=== PATIENT | male | born 2000 ===

== ENCOUNTER 2019-03-19 18:22 | Emergency (ER) | payer BC, OTHER ==
[~2019-03-19] VITALS: Ht 171 cm; Wt 71.2 kg
[2019-03-19 19:12] LABS: BILIRUBIN,URINE NEGATIVE (NEGATIVE); CLARITY,URINE CLOUDY; COLOR,URINE YELLOW; GLUCOSE, URINE (UA) NEGATIVE (NEGATIVE); KETONES,URINE TRACE (NEGATIVE); LEUKOCYTE ESTERASE ,URINE NEGATIVE (NEGATIVE); NITRITE,URINE NEGATIVE (NEGATIVE); PH,URINE 7.5 (5-9); PROTEIN,URINE TRACE (NEGATIVE); UROBILINOGEN,URINE 0.2 MG/DL (NORMAL)
[2019-03-19 19:24] LABS: RBC,URINE 50-100 /HPF
[2019-03-19 19:25] LABS: AMORPHOUS SEDIMENT,UR LARGE AMOR PHOSPHATE /LPF; BACTERIA,URINE NEGATIVE /HPF
[2019-03-19] MEDS ORDERED: KETOROLAC 30 MG/ML VIAL IVP ONE (19:45)
[2019-03-19 19:49] LABS: BASOPHILS % (AUTO) 0 % (0-10); EOSINOPHILS # (AUTO) 0.2 10^3/uL (0.0-0.3); EOSINOPHILS % (AUTO) 1 % (0-10); HEMATOCRIT 44 % (40-54); LYMPHOCYTES # (AUTO) 2.1 X 10^3 (1.0-4.0); LYMPHOCYTES % (AUTO) 17 % (12-44); MEAN CORPUSCULAR HEMOGLOBIN 30 PG (25-34); MEAN CORPUSCULAR HGB CONC 34 G/DL (32-36); MEAN CORPUSCULAR VOLUME 89 FL (80-99); MEAN PLATELET VOLUME 10.8 FL (7.4-10.4); MONOCYTES # (AUTO) 0.5 X 10^3 (0.0-1.0); MONOCYTES % (AUTO) 4 % (0-12); NEUTROPHILS # (AUTO) 9.6 X 10^3 (1.8-7.8); NEUTROPHILS % (AUTO) 77 % (42-75); PLATELET COUNT 203 10^3/uL (130-400); RED CELL DISTRIBUTION WIDTH 11.9 % (10.0-14.5); WHITE BLOOD COUNT 12.5 10^3/uL (4.3-11.0)
--- NOTE | 2019-03-19 20:00 | Diagnostic Imaging Report ---
PROCEDURE: CT abdomen and pelvis without contrast. TECHNIQUE: Multiple contiguous axial images were obtained through the abdomen and pelvis without the use of intravenous contrast. Auto Exposure Controls were utilized during the CT exam to meet ALARA standards for radiation dose reduction. INDICATION: Left flank pain Unenhanced images of the liver and spleen reveal no focal abnormality. No gallbladder, pancreatic or adrenal gland abnormality is identified. There are several punctate calcifications in the upper and lower pole of the right kidney. In addition, there is also mild right hydronephrosis and hydroureter to the level of an approximately 0.3 cm right ureterovesical junction calculus. Left kidney and ureter are unremarkable. There is no evidence of free fluid or focal inflammation. No organized fluid collection is identified. There is no evidence of appendiceal inflammation. No bladder stone is seen. IMPRESSION: There are several nonobstructing stones in the right kidney with an at least partially obstructing 0.3 cm right ureterovesical junction stone. Dictated by: Dictated on workstation # [id number]
[2019-03-19 20:14] LABS: CHLORIDE 104 MMOL/L (98-107); SODIUM 140 MMOL/L (135-145)
[2019-03-19 20:15] LABS: ALANINE AMINOTRANSFERASE 15 U/L (0-55); ALBUMIN 4.7 GM/DL (3.2-4.5); ALKALINE PHOSPHATASE 102 U/L (40-136); BILIRUBIN,TOTAL 0.3 MG/DL (0.1-1.0); BUN/CREATININE RATIO 13; CALCIUM 10.2 MG/DL (8.5-10.1); CARBON DIOXIDE 26 MMOL/L (21-32); GFR ESTIMATED > 60; GLUCOSE 107 MG/DL (70-105); TOTAL PROTEIN 7.6 GM/DL (6.4-8.2)
--- NOTE | 2019-03-19 20:53 | ED Abdominal Pain ---
General Chief Complaint: Abdominal/GI Problems Stated Complaint: ABD PAIN Nursing Triage Note: pt states abd pain started today around 1600 Source of Information: Patient, Family Exam Limitations: No Limitations History of Present Illness Date Seen by Provider: Mar 19, 2019 Time Seen by Provider: 18:45 Initial Comments Right flank and lower abdominal pain starting about 4:00 this afternoon. He was at work. No trauma or incident. Mild dysuria but no hematuria. No history of kidney stones abdominal surgeries or medical problems. He has not taken anything for the pain yet. He is not having any nausea or vomiting at this time. Allergies and Home Medications Allergies Coded Allergies: No Known Drug Allergies (Unverified , 03/19/19) Home Medications Cephalexin 500 Mg Tablet, 500 MG PO BID Prescribed by: SHANTE WHITEHEAD on 03/19/192102 Hydrocodone Bit/Acetaminophen 1 Tab Tab, 1 EACH PO Q4-6HR PRN for PAIN-MODERATE Prescribed by: SHANTE WHITEEHAD on 03/19/192102 Ondansetron 4 Mg Tab.rapdis, 4 MG PO Q6H PRN for NAUSEA/VOMITING Prescribed by: SHANTE WHITEHEAD on 03/19/192102 Tamsulosin HCl 0.4 Mg Cap, 0.4 MG PO DAILY Prescribed by: SHANTE WHITEHEAD on 03/19/192102 Patient Home Medication List Home Medication List Reviewed: Yes Review of Systems Review of Systems Constitutional: No chills, No fever, No malaise EENTM: No Blurred Vision, No Double Vision Respiratory: Denies Cough, Denies Orthopnea Cardiovascular: Denies Chest Pain, Denies Lightheadedness Gastrointestinal: Denies Constipated, Denies Diarrhea, Denies Nausea Genitourinary: Burning; Denies Discharge Musculoskeletal: see HPI, back pain; No joint pain Past Goakzuw-Gzapki-Xcibxt Hx Patient Social History Alcohol Use: Denies Use Recreational Drug Use: No Smoking Status: Never a Smoker Recent Foreign Travel: No Contact w/Someone Who Travel: No Recent Infectious Disease Expo: No Recent Hopitalizations: No Physical Abuse: No Sexual Abuse: No Mistreated: No Fear: No Seasonal Allergies Seasonal Allergies: No Past Medical History Surgeries: No Respiratory: No Cardiac: No Neurological: No Genitourinary: No Gastrointestinal: No Musculoskeletal: No Endocrine: No HEENT: No Cancer: No Psychosocial: No Integumentary: No Blood Disorders: No Physical Exam Vital Signs Vital Signs - First Documented 03/19/19 03/19/19 19:14 21:15 Temp 37.1 Pulse 61 Resp 15 B/P (MAP) 135/69 Pulse Ox 98 O2 Delivery Room Air Capillary Refill : Height/Weight/BMI Height: '" Weight: lbs. oz. kg; 24.00 BMI Method: General Appearance: WD/WN, mild distress HEENT: PERRL/EOMI, pharynx normal Respiratory: chest non-tender, lungs clear, normal breath sounds, no respiratory distress, no accessory muscle use Cardiovascular: normal peripheral pulses, regular rate, rhythm Peripheral Pulses: 2+ Dorsalis Pedis (R), 2+ Left Dors-Pedis (L), 2+ Radial Pulses (R), 2+ Radial Pulses (L) Gastrointestinal: normal bowel sounds, non tender, soft Extremities: normal range of motion, non-tender, normal inspection, normal capillary refill Back: normal inspection, CVA tenderness (R); No CVA tenderness (L) Neurologic/Psychiatric: alert, normal mood/affect, oriented x 3 Skin: normal color, warm/dry Progress/Results/Core Measures Results/Orders Lab Results Laboratory Tests Test 03/19/19 19:05 03/19/19 19:40 Range/Units Urine Color YELLOW Urine Clarity CLOUDY Urine pH 7.5 5-9 Urine Specific [place] 1.020 1.016-1.022 Urine Protein TRACE H NEGATIVE Urine Glucose (UA) NEGATIVE NEGATIVE Urine Ketones TRACE H NEGATIVE Urine Nitrite NEGATIVE NEGATIVE Urine Bilirubin NEGATIVE NEGATIVE Urine Urobilinogen 0.2 NORMAL MG/DL Urine Leukocyte Esterase NEGATIVE NEGATIVE Urine RBC (Auto) 3+ H NEGATIVE Urine RBC 50-100 H /HPF Urine WBC NONE /HPF Urine Squamous Epithelial Cells NONE /HPF Urine Crystals PRESENT H /LPF Urine Amorphous Sediment LARGE MANE PHOSPHATE H /LPF Urine Bacteria NEGATIVE /HPF Urine Casts NONE /LPF Urine Mucus NEGATIVE /LPF Urine Culture Indicated NO White Blood Count 12.5 H 4.3-11.0 10^3/uL Red Blood Count 4.94 4.35-5.85 10^6/uL Hemoglobin 15.0 13.3-17.7 G/DL Hematocrit 44 40-54 % Mean Corpuscular Volume 89 80-99 FL Mean Corpuscular Hemoglobin 30 25-34 PG Mean Corpuscular Hemoglobin Concent 34 32-36 G/DL Red Cell Distribution Width 11.9 10.0-14.5 % Platelet Count 203 130-400 10^3/uL Mean Platelet Volume 10.8 H 7.4-10.4 FL Neutrophils (%) (Auto) 77 H 42-75 % Lymphocytes (%) (Auto) 17 12-44 % Monocytes (%) (Auto) 4 0-12 % Eosinophils (%) (Auto) 1 0-10 % Basophils (%) (Auto) 0 0-10 % Neutrophils # (Auto) 9.6 H 1.8-7.8 X 10^3 Lymphocytes # (Auto) 2.1 1.0-4.0 X 10^3 Monocytes # (Auto) 0.5 0.0-1.0 X 10^3 Eosinophils # (Auto) 0.2 0.0-0.3 10^3/uL Basophils # (Auto) 0.0 0.0-0.1 10^3/uL Sodium Level 140 135-145 MMOL/L Potassium Level 4.0 3.6-5.0 MMOL/L Chloride Level 104 98-107 MMOL/L Carbon Dioxide Level 26 21-32 MMOL/L Anion Gap 10 5-14 MMOL/L Blood Urea Nitrogen 14 7-18 MG/DL Creatinine 1.10 0.60-1.30 MG/DL Estimat Glomerular Filtration Rate > 60 BUN/Creatinine Ratio 13 Glucose Level 107 H 70-105 MG/DL Calcium Level 10.2 H 8.5-10.1 MG/DL Corrected Calcium 8.5-10.1 MG/DL Total Bilirubin 0.3 0.1-1.0 MG/DL Aspartate Amino Transf (AST/SGOT) 18 5-34 U/L Alanine Aminotransferase (ALT/SGPT) 15 0-55 U/L Alkaline Phosphatase 102 40-136 U/L Total Protein 7.6 6.4-8.2 GM/DL Albumin 4.7 H 3.2-4.5 GM/DL My Orders Orders - SHANTE WHITEHEAD Ua Culture If Indicated (03/19/19 18:48) Ct Abdomen/Pelvis Wo (03/19/19 19:31) Cbc With Automated Diff (03/19/19 19:31) Comprehensive Metabolic Panel (03/19/19 19:31) Ketorolac Injection (Toradol Injection) (03/19/19 19:45) Ed Iv/Invasive Line Start (03/19/19 19:31) Ceftriaxone For Iv Use (Rocephin For I (03/19/19 21:00) Rx-Ondansetron Po (Rx-Zofran Po) (03/19/19 21:04) Rx-Hydrocodone/Apap 5-325 Mg (Rx-Vicodin (03/19/19 21:15) Medications Given in ED Current Medications Medications Dose Ordered Sig/Luigi Route Start Time Stop Time Status Last Admin Dose Admin Ceftriaxone Sodium 1000 mg/ Sterile Water 10 ml @ 200 mls/hr ONCE ONCE IV 03/19/19 21:00 03/19/19 21:02 DC 03/19/19 21:00 200 MLS/HR Vital Signs/I&O 03/19/19 03/19/19 19:14 21:15 Temp 37.1 37.3 Pulse 61 77 Resp 15 16 B/P (MAP) 135/69 Pulse Ox 98 O2 Delivery Room Air Room Air 03/20/19 00:00 Intake Total 10 ml Balance 10 ml Progress Progress Note : Time: 20:50 Progress Note Toradol took his pain away. Set him up with a strainer, Zofran, Flomax, hydrocodone and Zofran. Gave him a take-home pack of hydrocodone and Zofran. Rocephin 1 g IV 1. Diagnostic Imaging Diagonstic Imaging: CT Plain Films/CT/US/NM/MRI: abdomen, pelvis Comments NAME: HELEN FUCHS REC#: [id number] PT STATUS: REG ER : 2000 PHYSICIAN: SHANTE WHITEHEAD MD ADMIT DATE: 03/19/19/ER FS Draft Date of Exam:03/19/19 CT ABDOMEN/PELVIS WO PROCEDURE: CT abdomen and pelvis without contrast. TECHNIQUE: Multiple contiguous axial images were obtained through the abdomen and pelvis without the use of intravenous contrast. Auto Exposure Controls were utilized during the CT exam to meet ALARA standards for radiation dose reduction. INDICATION: Left flank pain Unenhanced images of the liver and spleen reveal no focal abnormality. No gallbladder, pancreatic or adrenal gland abnormality is identified. There are several punctate calcifications in the upper and lower pole of the right kidney. In addition, there is also mild right hydronephrosis and hydroureter to the level of an approximately 0.3 cm right ureterovesical junction calculus. Left kidney and ureter are unremarkable. There is no evidence of free fluid or focal inflammation. No organized fluid collection is identified. There is no evidence of appendiceal inflammation. No bladder stone is seen. IMPRESSION: There are several nonobstructing stones in the right kidney with an at least partially obstructing 0.3 cm right ureterovesical junction stone. Dictated on workstation # [id number] Dict: 03/19/191952 Trans: 03/19/191958 [facility] [id number] Interpreted by: WOLFGANG MANRIQUEZ MD Electronically signed by: Reviewed: Reviewed by Me Departure Impression Primary Impression: Ureteral calculus, right Disposition: 01 HOME, SELF-CARE Condition: Stable Departure-Patient Inst. Decision time for Depature: 20:49 Referrals: NO,LOCAL PHYSICIAN (PCP) Primary Care Physician RUBEN GARRETT MD Patient Instructions: Kidney Stones (DC) Add. Discharge Instructions: Drink lots of fluids. Caffeine is acceptable. Ibuprofen 800 mg every 8 hours in addition to hydrocodone one tablet every 6 hours as needed for pain. Flomax 1 tablet daily until the stone passes Keflex one capsule twice a day for one week. Zofran 1 tablet every 6 hours under the tongue as necessary for nausea or vomiting. Strain your urine until you catch the stone. Sometimes you can miss the stone or acute breakup into a fine sand. All discharge instructions reviewed with patient and/or family. Voiced understanding. Scripts Cephalexin (Cephalexin) 500 Mg Tablet 500 MG PO BID for 7 Days, #14 TAB 0 Refills Prov: SHANTE WHITEHEAD 03/19/19 Tamsulosin HCl (Flomax) 0.4 Mg Cap 0.4 MG PO DAILY for 7 Days, #7 CAP Prov: SHANTE WHITEHEAD 03/19/19 Hydrocodone Bit/Acetaminophen (Hydrocodone/Acetaminophen 5/325mg Tablet) 1 Tab Tab 1 EACH PO Q4-6HR PRN for PAIN-MODERATE MDD 10 for 3 Days, #10 TAB Prov: SHANTE WHITEHEAD 03/19/19 Ondansetron (Ondansetron Odt) 4 Mg Tab.rapdis 4 MG PO Q6H PRN for NAUSEA/VOMITING, #8 TAB 0 Refills Prov: SHANTE WHITEHEAD 03/19/19 Work/School Note: Work Release Form Date Seen in the Emergency Department: Mar 19, 2019 Return to Work: Mar 21, 2019 Restrictions: No Restrictions SHANTE WHITEHEAD Mar 19, 2019 20:53
[2019-03-19] MEDS ORDERED: cefTRIAXone FOR IV USE 1,000 MG in WATER (STERILE) FOR INJECTION 10 ML IV ONE (21:00)
[2019-03-19] MEDS ORDERED: ONDA4TAB11 PO (21:03)
[2019-03-19] MEDS ORDERED: TAMS0.4C98 PO (21:03)
[2019-03-19] MEDS ORDERED: CEPH500T PO (21:03)
[2019-03-19] MEDS ORDERED: ACHD5005 PO (21:03)
[2019-03-19] MEDS ORDERED: RX-ONDANSETRON 4 MG ODT (ZOFRAN) PPK #4 PO STA (21:04)
[2019-03-19] MEDS ORDERED: RX-HYDROCODONE/APAP 5/325 MG #4 TAB PK PO PRN (21:15)
== END 2019-03-19 21:12 | disposition home or self-care (01) ==
LOC: ER FS 18:24
DX: N20.1 Calculus of ureter (principal)
CPT/HCPCS: 36415; 74176; 80053; 81000; 85025; 96374

== ENCOUNTER 2022-01-28 16:15 | Emergency (ER) | payer SELFPAY ==
[~2022-01-28] VITALS: Ht 176 cm; Wt 79.0 kg
[~2022-01-28 16:15] MED LIST: ACHD5005 PO; CEPH500T PO; ONDA4TAB11 PO; TMSL.4C PO
--- NOTE | 2022-01-28 16:34 | ED Abdominal Pain ---
General Chief Complaint: Abdominal/GI Problems Stated Complaint: ABD PAIN Source of Information: Patient (HERNANDO MYLES) History of Present Illness Date Seen by Provider: Jan 28, 2022 Time Seen by Provider: 16:29 Initial Comments Patient presents for evaluation of abdominal pain. He states he was at work and around 11am started having epigastric abdominal pain. He states he has thrown up twice since then. He has never had anything like this before, and nothing spe cifically makes his symptoms better or worse. Timing/Duration: 4-6 Hours Severity/Quality: Moderate Location: Epigastric Radiation: No Radiation Activities at Onset: None (HERNANDO MYLES) Allergies and Home Medications Allergies Coded Allergies: No Known Drug Allergies (Unverified , 03/19/19) Patient Home Medication List Home Medication List Reviewed: Yes (HERNANDO MYLES) Cephalexin (Cephalexin) 500 Mg Tablet, 500 MG PO BID Prescribed by: SHANTE WHITEHEAD on 03/19/192102 Hydrocodone Bit/Acetaminophen (Lortab 5 Mg Tablet) 1 Tab Tab, 1 EACH PO Q4-6HR PRN for PAIN-MODERATE Prescribed by: SHANTE WHITEHEAD on 03/19/192102 Ondansetron (Ondansetron Odt) 4 Mg Tab.rapdis, 4 MG PO Q6H PRN for NAUSEA/VOMITING Prescribed by: SHANTE WHITEHEAD on 03/19/192102 Pantoprazole Sodium (Protonix) 40 Mg Granpkt.dr, 40 MG PO DAILY Prescribed by: Ashu Myles on 01/28/221817 Tamsulosin HCl (Flomax) 0.4 Mg Cap, 0.4 MG PO DAILY Prescribed by: SHANTE WHITEHEAD on 03/19/192102 Review of Systems Review of Systems Constitutional: no symptoms reported EENTM: No Symptoms Reported Respiratory: No Symptoms Reported Cardiovascular: No Symptoms Reported Gastrointestinal: Abdominal Pain, Nausea, Vomiting Genitourinary: No Symptoms Reported Musculoskeletal: no symptoms reported Skin: no symptoms reported Endocrine: No Symptoms Reported Hematologic/Lymphatic: No Symptoms Reported (HERNANDO MYLES) Past Oogugpb-Cmnggn-Ccswyo Hx Patient Social History Tobacco Use?: No Use of E-Cig and/or Vaping dev: No Substance use?: No Alcohol Use?: No Pt feels they are or have been: No (HERNANDO MYLES) Seasonal Allergies Seasonal Allergies: No (HERNANDO MYLES) Past Medical History Surgery/Hospitalization HX: kidney stone Surgeries: No Respiratory: No Cardiac: No Neurological: No Genitourinary: No Gastrointestinal: No Musculoskeletal: No Endocrine: No HEENT: No Cancer: No Psychosocial: No Integumentary: No Blood Disorders: No (HERNANDO MYLES) Physical Exam Vital Signs Vital Signs - First Documented 01/28/22 16:15 Temp 36.6 Pulse 71 Resp 18 B/P (MAP) 126/72 (90) Pulse Ox 100 O2 Delivery Room Air (DARIELA REYNOSO MD) Vital Signs Capillary Refill : Less Than 3 Seconds (HERNANDO MYLES) Height/Weight/BMI Height: '" Weight: lbs. oz. 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, alert, oriented x 3 Skin: normal color, warm/dry (HERNANDO MYLES) Progress/Results/Core Measures Results/Orders Lab Results Laboratory Tests Test 01/28/22 16:18 Range/Units White Blood Count 16.3 H 4.3-11.0 10^3/uL Red Blood Count 4.91 4.30-5.52 10^6/uL Hemoglobin 14.9 13.3-17.7 g/dL Hematocrit 43 40-54 % Mean Corpuscular Volume 88 80-99 fL Mean Corpuscular Hemoglobin 30 25-34 pg Mean Corpuscular Hemoglobin Concent 34 32-36 g/dL Red Cell Distribution Width 12.0 10.0-14.5 % Platelet Count 180 130-400 10^3/uL Mean Platelet Volume 11.1 9.0-12.2 fL Immature Granulocyte % (Auto) 0 % Neutrophils (%) (Auto) 87 H 42-75 % Lymphocytes (%) (Auto) 7 L 12-44 % Monocytes (%) (Auto) 5 0-12 % Eosinophils (%) (Auto) 1 0-10 % Basophils (%) (Auto) 0 0-10 % Neutrophils # (Auto) 14.2 H 1.8-7.8 10^3/uL Lymphocytes # (Auto) 1.1 1.0-4.0 10^3/uL Monocytes # (Auto) 0.8 0.0-1.0 10^3/uL Eosinophils # (Auto) 0.1 0.0-0.3 10^3/uL Basophils # (Auto) 0.0 0.0-0.1 10^3/uL Immature Granulocyte # (Auto) 0.0 0.0-0.1 10^3/uL Neutrophils % (Manual) 66 % Lymphocytes % (Manual) 10 % Monocytes % (Manual) 5 % Eosinophils % (Manual) 2 % Metamyelocytes % 2 % Band Neutrophils 15 % Blood Morphology Comment NORMAL Sodium Level 137 135-145 MMOL/L Potassium Level 3.4 L 3.6-5.0 MMOL/L Chloride Level 101 98-107 MMOL/L Carbon Dioxide Level 23 21-32 MMOL/L Anion Gap 13 5-14 MMOL/L Blood Urea Nitrogen 15 7-18 MG/DL Creatinine 0.98 0.60-1.30 MG/DL Estimat Glomerular Filtration Rate 112 BUN/Creatinine Ratio 15 Glucose Level 111 H 70-105 MG/DL Calcium Level 9.4 8.5-10.1 MG/DL Corrected Calcium 9.0 8.5-10.1 MG/DL Total Bilirubin 0.5 0.1-1.0 MG/DL Aspartate Amino Transf (AST/SGOT) 51 H 5-34 U/L Alanine Aminotransferase (ALT/SGPT) 41 0-55 U/L Alkaline Phosphatase 87 40-136 U/L Total Protein 7.2 6.4-8.2 GM/DL Albumin 4.5 3.2-4.5 GM/DL Lipase 19 8-78 U/L (DARIELA REYNOSO MD) Vital Signs/I&O 01/28/22 01/28/22 16:15 18:28 Temp 36.6 36.6 Pulse 71 71 Resp 18 18 B/P (MAP) 126/72 (90) 126/72 Pulse Ox 100 100 O2 Delivery Room Air Room Air (DARIELA REYNOSO MD) Blood Pressure Mean: 90 Departure Communication (Admissions) Patient is afebrile, nontoxic and in no distress. His symptoms have resolved while in the emergency room he does not have any recurrence of symptoms. Does have mild leukocytosis but his CT scan is unremarkable. We discussed the possibility of infection versus noninfectious etiologies. At this time we will treat patient symptomatically and he will return if worse. (HERNANDO MYLES) Impression Primary Impression: Nausea and vomiting Additional Impression: Epigastric abdominal pain Disposition: HOME, SELF-CARE Condition: Stable Departure-Patient Inst. Decision time for Depature: 18:17 (HERNANDO MYLES) Referrals: NO,LOCAL PHYSICIAN (PCP/Family) Primary Care Physician Patient Instructions: Dyspepsia, Nausea and Vomiting, Adult (DC) Scripts Pantoprazole Sodium (Protonix) 40 Mg Granpkt.dr 40 MG PO DAILY for 14 Days, #14 TAB Prov: HERNANDO MYLES 01/28/22 ATTENDING PHYSICIAN NOTE: I was physically present as attending physician in the emergency department dur ing the care of this patient, but I was not directly involved in the decision making or delivery of care for this patient. (DARIELA REYNOSO MD) HERNANDO MYLES Jan 28, 2022 16:34 DARIELA REYNOSO MD Jan 29, 2022 19:57
[2022-01-28 16:36] LABS: BASOPHILS % (AUTO) 0 % (0-10); EOSINOPHILS # (AUTO) 0.1 10^3/uL (0.0-0.3); EOSINOPHILS % (AUTO) 1 % (0-10); HEMATOCRIT 43 % (40-54); HEMOGLOBIN 14.9 g/dL (13.3-17.7); LYMPHOCYTES # (AUTO) 1.1 10^3/uL (1.0-4.0); LYMPHOCYTES % (AUTO) 7 % (12-44); MEAN CORPUSCULAR HEMOGLOBIN 30 pg (25-34); MEAN CORPUSCULAR HGB CONC 34 g/dL (32-36); MEAN CORPUSCULAR VOLUME 88 fL (80-99); MEAN PLATELET VOLUME 11.1 fL (9.0-12.2); MONOCYTES # (AUTO) 0.8 10^3/uL (0.0-1.0); MONOCYTES % (AUTO) 5 % (0-12); NEUTROPHILS # (AUTO) 14.2 10^3/uL (1.8-7.8); NEUTROPHILS % (AUTO) 87 % (42-75); PLATELET COUNT 180 10^3/uL (130-400); WHITE BLOOD COUNT 16.3 10^3/uL (4.3-11.0)
[2022-01-28 16:42] LABS: ALBUMIN 4.5 GM/DL (3.2-4.5); POTASSIUM 3.4 MMOL/L (3.6-5.0)
[2022-01-28 16:44] LABS: CALCIUM 9.4 MG/DL (8.5-10.1)
[2022-01-28 16:45] LABS: TOTAL PROTEIN 7.2 GM/DL (6.4-8.2)
[2022-01-28 16:47] LABS: BILIRUBIN,TOTAL 0.5 MG/DL (0.1-1.0)
[2022-01-28 16:48] LABS: CREATININE SERUM 0.98 MG/DL (0.60-1.30)
[2022-01-28] MEDS ORDERED: IOHEXOL 350 MG/ML 100 ML (OMNIPAQUE 350) VIAL IV ONE (17:00)
[2022-01-28] MEDS ORDERED: NS 100 ML (IVPB) BAG IV ONE (17:00)
[2022-01-28 17:02] LABS: BAND NEUTROPHILS 15 %; EOSINOPHILS % (MANUAL) 2 %; LYMPHOCYTES % (MANUAL) 10 %; METAMYELOCYTES % 2 %; MONOCYTES % (MANUAL) 5 %; NEUTROPHILS % (MANUAL) 66 %; RBC MORPH NORMAL
--- NOTE | 2022-01-28 18:03 | Diagnostic Imaging Report ---
PROCEDURE: CT abdomen and pelvis with contrast. TECHNIQUE: Multiple contiguous axial images were obtained through the abdomen and pelvis after administration of intravenous contrast. Auto Exposure Controls were utilized during the CT exam to meet ALARA standards for radiation dose reduction. All CT scans use one or more of the following dose optimizing techniques: automated exposure control, MA and/or KvP adjustment based on patient size and exam type or iterative reconstruction. INDICATION: Abdominal pain. COMPARISON: Prior noncontrast CT from March 19, 2019. FINDINGS: The lung bases are clear without findings of pneumonia or edema. There is no pleural or pericardial effusion. The liver demonstrates no focal abnormality. The gallbladder is contracted. No radiodense stone. There is no biliary dilatation. Portal veins are patent. Pancreas demonstrates no focal abnormality or adjacent fluid or stranding. The spleen is normal in size. There is no adrenal mass. The kidneys demonstrate a tiny cortical cyst. There are tiny nonobstructing calculi present within the right kidney. There is no finding of hydronephrosis or stone within the collecting system. The stomach is nondistended. There is no finding of abnormal small bowel dilation to suggest bowel obstruction. There is no finding of appendicitis. The colon is decompressed. There is no significant pericolonic fat stranding. There is no free fluid evident within the pelvis. There is no finding of free air. There is no abscess or adenopathy. Aorta and IVC are normal in caliber. There is no acute or suspicious osseous abnormality. IMPRESSION: 1. No CT finding of an acute inflammatory or obstructive process within the abdomen or pelvis. 2. Nonobstructing right renal calculi. 3. A few fluid-filled loops of small bowel. There is no finding of bowel dilation or evidence of bowel obstruction. There is no evidence of appendicitis. There is no abnormal colonic thickening. 4. No free fluid, free air or focal inflammation in the omentum or mesentery. Dictated by: Dictated on workstation # [id number]
[2022-01-28] MEDS ORDERED: PANT40SU PO (18:18)
[2022-01-28 18:28] VITALS: BP 126/72
== END 2022-01-28 18:28 | disposition home or self-care (01) ==
LOC: EDUNIT# 16:15 → ER 16:15
DX: R11.2 Nausea with vomiting, unspecified (principal); R10.13 Epigastric pain; R10.11 Right upper quadrant pain; D72.829 Elevated white blood cell count, unspecified; Z28.310 Unvaccinated for COVID-19
CPT/HCPCS: 36415; 74177; 80053; 83690; 85007; 85027

== ENCOUNTER 2022-10-11 19:25 | Emergency (ER) | payer OTHER ==
[~2022-10-11] VITALS: Ht 165 cm; Wt 81.7 kg
[~2022-10-11 19:25] MED LIST changes: +PANT40SU PO
[2022-10-11] MEDS ORDERED: PANTOPRAZOLE 40 MG (PROTONIX) TAB PO STA (20:28)
[2022-10-11] MEDS ORDERED: ANTACID SUSP 30 ML UDC (MYLANTA) PO STA (20:28)
[2022-10-11] MEDS ORDERED: SUCRALFATE 1 GM (CARAFATE) TAB PO STA (20:28)
[2022-10-11] MEDS ORDERED: LIDOCAINE 2% VISCOUS 15 ML UDC PO STA (20:28)
[2022-10-11] MEDS ORDERED: SUCR1TAB PO (20:40)
[2022-10-11] MEDS ORDERED: OMEP40CA6 PO (20:40)
--- NOTE | 2022-10-11 20:42 | ED Abdominal Pain ---
General Chief Complaint: Abdominal/GI Problems Stated Complaint: ABD PAIN Nursing Triage Note: patient states in Jul treated for acid reflux. patient has not followed up. states he as abominal pain. Source of Information: Patient History of Present Illness Date Seen by Provider: Oct 11, 2022 Time Seen by Provider: 20:02 Initial Comments 22-year-old male presenting with complaints of epigastric abdominal pain. He has been having issues with this for the last 5 to 6 months. He was seen through the urgent care in July and advised that he had a bacterial infection in his gut. He was treated with medicine for H. pylori but did not finish the course of antibiotics. He has continued to have intermittent pain but felt that it was worse tonight. He has been drinking alcohol on the weekends. Today he had taken some DayQuil and NyQuil because of upper respiratory infection symptoms. In the last 2 hours he has had severe burning and sharp pain in the epigastric area going up into his chest. He denies nausea, vomiting, diarrhea, pain with urination, blood in his stools, dark tarry stool. He had taken Tums and Pepto-Bismol which has helped to calm down some of his pain. Severity/Quality: Burning, Sharp Location: Epigastric Radiation: Chest Activities at Onset: None Modifying Factors: Worsens With Eating, Worsens With Lying down Associated Symptoms: No Back Pain, No Chest Pain, No Diaphoresis, No Fever/Chills, No Fatigue, No Headache; Heartburn; No Nausea/Vomiting, No Rash, No Shortness of Air, No Swelling/Mass in Abdomen, No Syncope, No Weakness Allergies and Home Medications Allergies Coded Allergies: No Known Drug Allergies (Unverified , 03/19/19) Patient Home Medication List Home Medication List Reviewed: Yes Cephalexin (Cephalexin) 500 Mg Tablet, 500 MG PO BID Prescribed by: SHANTE WHITEHEAD on 03/19/192102 Hydrocodone Bit/Acetaminophen (Lortab 5 Mg Tablet) 1 Tab Tab, 1 EACH PO Q4-6HR PRN for PAIN-MODERATE Prescribed by: SHANTE WHITEHEAD on 03/19/192102 Omeprazole (Omeprazole) 40 Mg Capsule.dr, 40 MG PO DAILY Prescribed by: KATTY IBARRA on 10/11/222039 Ondansetron (Ondansetron Odt) 4 Mg Tab.rapdis, 4 MG PO Q6H PRN for NAUSEA/VOMI TING Prescribed by: SHANTE WHITEHEAD on 03/19/192102 Pantoprazole Sodium (Protonix) 40 Mg Granpkt.dr, 40 MG PO DAILY Prescribed by: Ashu Figueroa on 01/28/221817 Sucralfate (Sucralfate) 1 Gram Tablet, 1 GM PO ACHS Prescribed by: KATTY IBARRA on 10/11/222039 Tamsulosin HCl (Flomax) 0.4 Mg Cap, 0.4 MG PO DAILY Prescribed by: SHANTE WHITEHEAD on 03/19/192102 Review of Systems Review of Systems Constitutional: No chills, No fever EENTM: No Symptoms Reported Respiratory: No Symptoms Reported Cardiovascular: No Symptoms Reported Gastrointestinal: See HPI Genitourinary: No Symptoms Reported Musculoskeletal: no symptoms reported Skin: no symptoms reported Psychiatric/Neurological: No Symptoms Reported Past Ewztfew-Egglpz-Uejddy Hx Patient Social History Tobacco Use?: No Alcohol Use?: Yes Alcohol type: Beer, Hard Liquor Alcohol Frequency: Couple times a week Immunizations Up To Date Influenza Vaccine Up-to-Date: No; Not Current Seasonal Allergies Seasonal Allergies: No Past Medical History Surgery/Hospitalization HX: kidney stone Surgeries: No Respiratory: No Cardiac: No Neurological: No Genitourinary: No Gastrointestinal: No Musculoskeletal: No Endocrine: No HEENT: No Cancer: No Psychosocial: No Integumentary: No Blood Disorders: No Physical Exam Vital Signs Vital Signs - First Documented 10/11/22 19:30 Temp 36.4 Pulse 60 Resp 20 B/P (MAP) 139/71 (93) Pulse Ox 100 O2 Delivery Room Air Capillary Refill : Less Than 3 Seconds Height/Weight/BMI Height: '" Weight: lbs. oz. kg; 30.00 BMI Method: General Appearance: WD/WN, moderate distress (intermittently crying out in pain and complaining of burning epigastric pain) HEENT: PERRL/EOMI, pharynx normal Neck: non-tender, full range of motion, supple, normal inspection Respiratory: chest non-tender, lungs clear, normal breath sounds, no respiratory distress, no accessory muscle use Cardiovascular: normal peripheral pulses, regular rate, rhythm Gastrointestinal: normal bowel sounds, soft, no pulsatile mass; No distended, No guarding, No rebound; tenderness (epigastric) Rectal: deferred Extremities: normal range of motion, non-tender, normal capillary refill Neurologic/Psychiatric: alert, oriented x 3 Skin: normal color, warm/dry Progress/Results/Core Measures Results/Orders My Orders Orders - KATTY IBARRA MD Lidocaine 2% Viscous 15 Ml (Xylocaine Vi (10/11/22 20:28) Antacid Suspension (Mylanta Suspension (10/11/22 20:28) Sucralfate Tablet (Carafate Tablet) (10/11/22 20:28) Pantoprazole Tablet (Protonix Tablet) (10/11/22 20:28) Vital Signs/I&O 10/11/22 10/11/22 19:30 20:56 Temp 36.4 36.4 Pulse 60 60 Resp 20 20 B/P (MAP) 139/71 (93) 139/71 Pulse Ox 100 100 O2 Delivery Room Air Room Air Blood Pressure Mean: 93 Progress Progress Note : Progress Note Potential diagnosis of GERD, gastritis, esophagitis, esophageal spasms, peptic ulcer disease, pancreatitis, cholelithiasis. Initially I had ordered urinalysis with urine drug screen and gonorrhea and chlamydia until I was able to speak with the patient and she did not have any or lower abdominal pain so these orders were canceled. He was having burning and sharp pain in the epigastric area going up into his chest. It was worse with eating and with alcohol use. He denies fever, chills, dark tarry stool, blood in his stools. Symptoms improved with Tums and Pepto-Bismol today. Will prescribe an acid dragline oiler and an acid piter. So we will send prescriptions for omeprazole 40 mg p.o. daily for proton pump inhibitor and Carafate 1 g p.o. before every meal and at bedtime to try and help with this acid. Counseled to follow-up bland and low-fat ulcer diet. Check back with the clinic if not improving as he may need to have an EGD done to look for ulcers. Administer a GI cocktail here in the emergency department along with a dose of Carafate 1 gram and Protonix 40 mg po. Counseled on follow up and return precautions. Departure Impression Primary Impression: Gastritis Qualified Codes: K29.50 - Unspecified chronic gastritis without bleeding Additional Impression: GERD with esophagitis Qualified Codes: K21.00 - Gastro-esophageal reflux disease with esophagitis, without bleeding Disposition: HOME, SELF-CARE Condition: Stable Departure-Patient Inst. Decision time for Depature: 20:38 Referrals: NO,LOCAL PHYSICIAN (PCP) Primary Care Physician [facility] Patient Instructions: Acid Reflux, Adult and Adolescent ED, Gastritis ED, Ulcer and Gastritis Diet Add. Discharge Instructions: Follow a low-fat bland diet and stop drinking alcohol. Take the acid reducing medicine every day and the acid blocking medicine 4 times a day to help with your symptoms. Follow-up with the clinic as they may need to do a scope to look at the lining of your stomach for ulcers. [facility] clinic can be reached by calling [phone] All discharge instructions reviewed with patient and/or family. Voiced understanding. Scripts Sucralfate (Sucralfate) 1 Gram Tablet 1 GM PO ACHS for gastritis for 14 Days, #56 TAB 1 Refill Chew tablet to a slurry and then swallow Prov: KATTY IBARRA MD 10/11/22 Omeprazole (Omeprazole) 40 Mg Capsule.dr 40 MG PO DAILY for Gastritis for 30 Days, #30 CAP 0 Refills Prov: KATTY IBARRA MD 10/11/22 Work/School Note: Work Release Form Date Seen in the Emergency Department: Oct 11, 2022 Return to Work: Oct 13, 2022 Restrictions: No Restrictions KATTY IBARRA MD Oct 11, 2022 20:42
[2022-10-11 20:56] VITALS: BP 139/71
== END 2022-10-11 21:07 | disposition home or self-care (01) ==
LOC: EDUNIT# 19:25 → ER FS 19:27
DX: K21.00 Gastro-esophageal reflux disease with esophagitis, without bleeding (principal); K29.50 Unspecified chronic gastritis without bleeding; Z79.899 Other long term (current) drug therapy; Z28.310 Unvaccinated for COVID-19
CPT/HCPCS: 99283

== ENCOUNTER 2022-12-30 04:17 | Emergency (ER) | payer OTHER ==
[~2022-12-30 04:17] MED LIST changes: +OMEP40CA6 PO; +SUCR1TAB PO
[2022-12-30] MEDS ORDERED: SUCR1TAB PO (04:28)
[2022-12-30] MEDS ORDERED: OMEP40CA6 PO (04:28)
[2022-12-30] MEDS ORDERED: LIDOCAINE 2% VISCOUS 15 ML UDC PO ONE (04:30)
[2022-12-30] MEDS ORDERED: ANTACID SUSP 30 ML UDC (MYLANTA) PO ONE (04:30)
--- NOTE | 2022-12-30 04:32 | ED Abdominal Pain ---
General Chief Complaint: Abdominal/GI Problems Stated Complaint: ABD PAIN Source of Information: Patient History of Present Illness Date Seen by Provider: Dec 30, 2022 Time Seen by Provider: 04:19 Initial Comments 22 yo male presenting with complaint of burning pain to epigastric area. He was seen in September 2022 for similar complaints but never followed up with clinic or had EGD done. He took some of the prescription medicine left over from September for this pain and also some neel seltzer. It is now doing much better but not completely gone. He reports he stopped drinking alcohol, eating spicy foods and was doing better. He currently has a cold so he took over the counter cold medicine and some anacin and now has pain. This episode started at 3 am and is worse when he lays down and better when sitting up. No diarrhea, vomiting, nausea, fever, chills, abdominal trauma. Timing/Duration: 1-3 Hours Severity/Quality: Severe, Burning, Cramping Location: Epigastric Radiation: Epigastric Activities at Onset: Rest Modifying Factors: Improves With Antacids; Worsens With Eating Associated Symptoms: No Back Pain, No Chest Pain, No Diaphoresis, No Fever/Chills, No Fatigue, No Headache; Heartburn; No Nausea/Vomiting, No Rash, No Shortness of Air, No Swelling/Mass in Abdomen, No Syncope, No Weakness Allergies and Home Medications Allergies Coded Allergies: No Known Drug Allergies (Unverified , 03/19/19) Patient Home Medication List Home Medication List Reviewed: Yes Cephalexin (Cephalexin) 500 Mg Tablet, 500 MG PO BID Prescribed by: SHANTE WHITEHEAD on 03/19/192102 Hydrocodone Bit/Acetaminophen (Lortab 5 Mg Tablet) 1 Tab Tab, 1 EACH PO Q4-6HR PRN for PAIN-MODERATE Prescribed by: SHANTE WHITEHEAD on 03/19/192102 Omeprazole (Omeprazole) 40 Mg Capsule., 40 MG PO DAILY Prescribed by: KATTY IBARRA on 12/30/22427 Ondansetron (Ondansetron Odt) 4 Mg Tab.rapdis, 4 MG PO Q6H PRN for NAUSEA/VOMITING Prescribed by: SHANTE WHITEHEAD on 03/19/192102 Pantoprazole Sodium (Protonix) 40 Mg Granploco., 40 MG PO DAILY Prescribed by: Ashu Figueroa on 01/28/221817 Sucralfate (Sucralfate) 1 Gram Tablet, 1 GM PO ACHS Prescribed by: KATTY BIARRA on 12/30/22 0428 Tamsulosin HCl (Flomax) 0.4 Mg Cap, 0.4 MG PO DAILY Prescribed by: SHANTE WHITEHEAD on 03/19/192102 Review of Systems Review of Systems Constitutional: No chills, No fever EENTM: No Symptoms Reported Respiratory: No Symptoms Reported Cardiovascular: No Symptoms Reported Gastrointestinal: See HPI Genitourinary: No Symptoms Reported Musculoskeletal: no symptoms reported Skin: no symptoms reported Psychiatric/Neurological: No Symptoms Reported Past Oqgunxe-Uwnfyi-Xoqvqb Hx Patient Social History Tobacco Use?: No Use of E-Cig and/or Vaping dev: No Substance use?: No Alcohol Use?: No Pt feels they are or have been: No Seasonal Allergies Seasonal Allergies: No Past Medical History Surgery/Hospitalization HX: kidney stone Surgeries: No Respiratory: No Cardiac: No Neurological: No Genitourinary: No Gastrointestinal: No Musculoskeletal: No Endocrine: No HEENT: No Cancer: No Psychosocial: No Integumentary: No Blood Disorders: No Physical Exam Vital Signs Vital Signs - First Documented 12/30/22 04:20 Pulse 78 Resp 16 B/P (MAP) 139/86 (103) Pulse Ox 98 O2 Delivery Room Air Capillary Refill : Height/Weight/BMI Height: '" Weight: lbs. oz. kg; 30.00 BMI Method: General Appearance: WD/WN, no apparent distress HEENT: PERRL/EOMI, pharynx normal Respiratory: chest non-tender, lungs clear, normal breath sounds, no respiratory distress, no accessory muscle use Cardiovascular: normal peripheral pulses, regular rate, rhythm Gastrointestinal: normal bowel sounds, soft, no pulsatile mass; No distended, No guarding, No rebound; tenderness (epigastric) Rectal: deferred Extremities: normal range of motion, non-tender, normal capillary refill Neurologic/Psychiatric: alert, oriented x 3 Skin: warm/dry Progress/Results/Core Measures Results/Orders My Orders Orders - KATTY IBARRA MD Lidocaine 2% Viscous 15 Ml (Xylocaine Vi (12/30/22 04:30) Antacid Suspension (Mylanta Suspension (12/30/22 04:30) Medications Given in ED Current Medications Medications Dose Ordered Sig/Luigi Route Start Time Stop Time Status Last Admin Dose Admin Al Hydrox/Mg Hydrox/Simethicone 30 ml ONCE ONCE PO 12/30/22 04:30 12/30/22 04:31 DC 12/30/22 04:29 30 ML Lidocaine HCl 15 ml ONCE ONCE PO 12/30/22 04:30 12/30/22 04:31 DC 12/30/22 04:29 15 ML Vital Signs/I&O 12/30/22 12/30/22 04:20 04:36 Pulse 78 78 Resp 16 16 B/P (MAP) 139/86 (103) 139/86 Pulse Ox 98 98 O2 Delivery Room Air Room Air Progress Progress Note : Progress Note Potential diagnosis of GERD, gastritis, cholecystitis, peptic ulcer disease, colitis, diverticulitis, pancreatitis. Discussed with him about doing labs and testing blood count, electrolytes, liver enzymes, urine. He stated he did not want to do that and just wanted to get the medicine that helped his pain before that numbed his tongue and throat. He had n ot followed up with clinic since being seen in September. Without having additional testing I could not say anything more than I told him in September 2022. He should establish with a clinic and may need EGD or scope to look for ulcers or reason for his pain and symptoms. Sent refill of Omeprazole 40 mg po q day and Carafate 1 gm qac and hs to pharmacy. Encouraged to establish with clinic and given [facility] and Dr. Kimball's numbers. Departure Impression Primary Impression: Epigastric abdominal pain Additional Impression: GERD with esophagitis Qualified Codes: K21.00 - Gastro-esophageal reflux disease with esophagitis, without bleeding Disposition: HOME, SELF-CARE Condition: Stable Departure-Patient Inst. Decision time for Depature: 04:28 Referrals: SHANICE KIMBALL DO NO,LOCAL PHYSICIAN (PCP) [place] Care Physician [facility] [place]ructions: Acid Reflux and GERD in Adults (DC), Gas and bloating, Gastritis (DC), Ulcer and Gastritis Diet Add. Discharge Instructions: Continue to avoid NSAIDS, anti-inflammatory medicine, alcohol, spicy foods as they can all cause you to have more pain and burning. Follow up with [facility] clinic by calling [phone] to get an appointment. They can help you continue on medicine and help get you in with surgeon to have a camera put down your throat to look for ulcers and acid problems in your stomach. You could also call Dr. Kimball directly about getting in with him since he is a surgeon that could do that test with the camera. Take the prescription medicine to help with burning and acid in your stomach. All discharge instructions reviewed with patient and/or family. Voiced understanding. Scripts Sucralfate (Sucralfate) 1 Gram Tablet 1 GM PO ACHS for gastritis for 14 Days, #56 TAB 1 Refill Chew tablet to a slurry and then swallow Prov: KATTY IBARRA MD 12/30/22 Omeprazole (Omeprazole) 40 Mg Capsule. 40 MG PO DAILY for Gastritis for 30 Days, #30 CAP 0 Refills Prov: KATTY IBARRA MD 12/30/22 KATTY IBARRA MD Dec 30, 2022 04:32
[2022-12-30 04:36] VITALS: BP 139/86
== END 2022-12-30 04:36 | disposition home or self-care (01) ==
LOC: EDUNIT# 04:17 → ER FS 04:18
DX: K21.00 Gastro-esophageal reflux disease with esophagitis, without bleeding (principal); Z28.310 Unvaccinated for COVID-19
CPT/HCPCS: 99283

== ENCOUNTER 2022-12-30 05:44 | Emergency (ER) | payer OTHER ==
[~2022-12-30] VITALS: Ht 165.1 cm; Wt 81.2 kg
[2022-12-30 05:45] VITALS: BP 135/72
[2022-12-30] MEDS ORDERED: fentaNYL INJ 100 MCG/2 ML AMP IVP STA (05:47)
[2022-12-30] MEDS ORDERED: NS IV 1000 ML 1,000 ML IV STA (05:47)
[2022-12-30] MEDS ORDERED: PANTOPRAZOLE 40 MG (PROTONIX) VIAL IV STA (05:47)
--- NOTE | 2022-12-30 05:57 | ED Abdominal Pain ---
General Stated Complaint: ABD PAIN Source of Information: Patient (KATTY IBARRA MD) History of Present Illness Date Seen by Provider: Dec 30, 2022 Time Seen by Provider: 05:48 Initial Comments 22-year-old male returns to the emergency department with complaints of his abdominal pain getting worse after he left less than an hour ago. He denies eating or drinking anything to make the pain worse. He has continued burning and sharp pain in the epigastric area. He denies any radiation. It does not go into his back or chest. He denies any nausea, vomiting, diarrhea. The pain was doing better after the GI cocktail but now it has come back and is worse. Timing/Duration: 1 Hour Severity/Quality: Severe, Burning, Cramping, Sharp Location: Epigastric Radiation: Epigastric Activities at Onset: Rest Modifying Factors: Worsens With Palpation Associated Symptoms: No Back Pain, No Chest Pain, No Diaphoresis, No Fever/Chills, No Fatigue, No Headache; Heartburn; No Nausea/Vomiting, No Rash, No Shortness of Air, No Swelling/Mass in Abdomen, No Syncope, No Weakness (KATTY IBARRA MD) Allergies and Home Medications Allergies Coded Allergies: No Known Drug Allergies (Unverified , 03/19/19) Patient Home Medication List Home Medication List Reviewed: Yes (KATTY IBARRA MD) Cephalexin (Cephalexin) 500 Mg Tablet, 500 MG PO BID Prescribed by: SHANTE WHITEHEAD on 03/19/192102 Hydrocodone Bit/Acetaminophen (Lortab 5 Mg Tablet) 1 Tab Tab, 1 EACH PO Q4-6HR PRN for PAIN-MODERATE Prescribed by: SHANTE WHITEHEAD on 03/19/192102 Omeprazole (Omeprazole) 40 Mg Capsule.dr, 40 MG PO DAILY Prescribed by: KATTY IBARRA on 12/30/22 0428 Ondansetron (Ondansetron Odt) 4 Mg Tab.rapdis, 4 MG PO Q6H PRN for NAUSEA/VOMITING Prescribed by: SHANTE WHITEHEAD on 03/19/192102 Pantoprazole Sodium (Protonix) 40 Mg Granpkt.dr, 40 MG PO DAILY Prescribed by: Ashu Figueroa on 01/28/22 1818 Sucralfate (Sucralfate) 1 Gram Tablet, 1 GM PO ACHS Prescribed by: KATTY IBARRA on 12/30/22 0608 Tamsulosin HCl (Flomax) 0.4 Mg Cap, 0.4 MG PO DAILY Prescribed by: SHANTE WHITEHEAD on 03/19/192102 Review of Systems Review of Systems Constitutional: no symptoms reported EENTM: No Symptoms Reported Respiratory: No Symptoms Reported Cardiovascular: No Symptoms Reported Gastrointestinal: See HPI Genitourinary: No Symptoms Reported Musculoskeletal: no symptoms reported Skin: no symptoms reported Psychiatric/Neurological: Anxiety Endocrine: No Symptoms Reported (KATTY IBARRA MD) Past Tdpywgw-Iipbvb-Wfbono Hx Seasonal Allergies Seasonal Allergies: No (KATTY IBARRA MD) Past Medical History Surgery/Hospitalization HX: kidney stone Surgeries: No Respiratory: No Cardiac: No Neurological: No Genitourinary: No Gastrointestinal: No Musculoskeletal: No Endocrine: No HEENT: No Cancer: No Psychosocial: No Integumentary: No Blood Disorders: No (KATTY IBARRA MD) Physical Exam Vital Signs Vital Signs - First Documented 12/30/22 05:45 Temp 36.8 Pulse 71 Resp 20 B/P (MAP) 135/72 (93) Pulse Ox 99 O2 Delivery Room Air (ANA CHING MD) Vital Signs Capillary Refill : (KATTY IBARRA MD) Height/Weight/BMI Height: '" Weight: lbs. oz. kg; 30.00 BMI Method: General Appearance: WD/WN, moderate distress HEENT: PERRL/EOMI, pharynx normal Neck: non-tender, full range of motion, supple, normal inspection Respiratory: chest non-tender, lungs clear, normal breath sounds, no respiratory distress, no accessory muscle use Cardiovascular: normal peripheral pulses, regular rate, rhythm Gastrointestinal: normal bowel sounds, soft, no pulsatile mass; No distended, No guarding, No rebound; tenderness (Epigastric tenderness to palpation) Rectal: deferred Extremities: normal range of motion, non-tender, normal capillary refill Neurologic/Psychiatric: patient services manager II-XII nml as tested, alert, oriented x 3 Skin: normal color, warm/dry (KATTY IBARRA MD) Images 1 - Epigastric tenderness to palpation (KATTY IBARRA MD) Progress/Results/Core Measures Results/Orders Lab Results Laboratory Tests Test 12/30/22 05:51 Range/Units White Blood Count 13.9 H 4.3-11.0 10^3/uL Red Blood Count 4.95 4.30-5.52 10^6/uL Hemoglobin 14.8 13.3-17.7 g/dL Hematocrit 43 40-54 % Mean Corpuscular Volume 88 80-99 fL Mean Corpuscular Hemoglobin 30 25-34 pg Mean Corpuscular Hemoglobin Concent 34 32-36 g/dL Red Cell Distribution Width 12.4 10.0-14.5 % Platelet Count 191 130-400 10^3/uL Mean Platelet Volume 10.5 9.0-12.2 fL Immature Granulocyte % (Auto) 0 % Neutrophils (%) (Auto) 78 H 42-75 % Lymphocytes (%) (Auto) 14 12-44 % Monocytes (%) (Auto) 6 0-12 % Eosinophils (%) (Auto) 2 0-10 % Basophils (%) (Auto) 0 0-10 % Neutrophils # (Auto) 10.8 H 1.8-7.8 10^3/uL Lymphocytes # (Auto) 1.9 1.0-4.0 10^3/uL Monocytes # (Auto) 0.9 0.0-1.0 10^3/uL Eosinophils # (Auto) 0.3 0.0-0.3 10^3/uL Basophils # (Auto) 0.0 0.0-0.1 10^3/uL Immature Granulocyte # (Auto) 0.0 0.0-0.1 10^3/uL Sodium Level 138 135-145 MMOL/L Potassium Level 3.8 3.6-5.0 MMOL/L Chloride Level 102 98-107 MMOL/L Carbon Dioxide Level 26 21-32 MMOL/L Anion Gap 10 5-14 MMOL/L Blood Urea Nitrogen 19 H 7-18 MG/DL Creatinine 1.01 0.60-1.30 MG/DL Estimat Glomerular Filtration Rate 107 BUN/Creatinine Ratio 19 Glucose Level 124 H 70-105 MG/DL Calcium Level 9.2 8.5-10.1 MG/DL Corrected Calcium 8.8 8.5-10.1 MG/DL Total Bilirubin 0.2 0.1-1.0 MG/DL Aspartate Amino Transf (AST/SGOT) 23 5-34 U/L Alanine Aminotransferase (ALT/SGPT) 20 0-55 U/L Alkaline Phosphatase 113 40-136 U/L Total Protein 7.2 6.4-8.2 GM/DL Albumin 4.5 3.2-4.5 GM/DL Lipase 22 8-78 U/L Serum Alcohol < 10 <10 MG/DL (ANA CHING MD) Medications Given in ED Current Medications Medications Dose Ordered Sig/Luigi Route Start Time Stop Time Status Last Admin Dose Admin Iohexol 80 ml ONCE ONCE IV 12/30/22 06:30 12/30/22 06:32 DC 12/30/22 06:19 80 ML Sodium Chloride 100 ml ONCE ONCE IV 12/30/22 06:30 12/30/22 06:32 DC 12/30/22 06:19 100 ML (ANA CHING MD) Vital Signs/I&O 12/30/22 05:45 Temp 36.8 Pulse 71 Resp 20 B/P (MAP) 135/72 (93) Pulse Ox 99 O2 Delivery Room Air (ANA CHING MD) Progress Progress Note #1: Progress Note Potential diagnosis of pancreatitis, gastritis, GERD, esophagitis, dive rticulitis, colitis, cholecystitis, pyelonephritis. Obtain peripheral IV access and send labs for complete blood count, comprehensive metabolic profile, lipase, alcohol, urinalysis, urine drug screen. CT scan of the abdomen and pelvis with IV contrast to look for signs of pathology in the abdomen to be causing his symptoms. Administer normal saline 1 L IV fluid bolus for hydration, pantoprazole 40 mg IV for acid and burning, fentanyl 50 mcg IV for complaint of severe pain. Progress Note #2: Time: 06:44 Progress Note Complete blood count was showing elevated WBC count to 13.9. He had normal hemoglobin of 14.8. Comprehensive metabolic profile did not show any acute significant abnormality with electrolytes or renal or hepatic function. Normal lipase and negative alcohol level. On my personal review and interpretation his CT scan of the abdomen/pelvis with IV contrast did not show free air or perforation. No pericholecystic fluid or gallbladder wall thickening. Pancreas did not appear to be inflamed. Patient's symptoms improved with treatment. Will wait until the CT scan report from Radiology is back. He might need to continue on PPI with Carafate until he can follow up with clinic and follow a low fat bland diet. (KATTY IBARRA MD) Progress Note : Progress Note 22-year-old male with above history coming in for epigastric pain. The patient was received in signout from the outgoing physician. LFTs within normal limits, creatinine normal, leukocytosis which is mild and nonspecific. CT abdomen pelvis with nephrolithiasis with no obstruction. Essentially the CT is negative for acute findings for his discomfort. He did have improvement after the GI cocktail. I believe he stable for discharge with outpatient follow-up. He was sent home with strict return precautions (ANA CHING MD) Diagnostic Imaging Diagonstic Imaging: CT Plain Films/CT/US/NM/MRI: abdomen, pelvis Reviewed: Reviewed by Me (KATTY IBARRA MD) Comments [facility], [place] NAME: HELEN FUCHS [facility] REC#: [id number] PT STATUS: REG ER : 2000 PHYSICIAN: KATTY IBARRA MD ADMIT DATE: 12/30/22/ER FS Draft Date of Exam:12/30/22 CT ABDOMEN/PELVIS W PROCEDURE: CT abdomen and pelvis with contrast. TECHNIQUE: Multiple contiguous axial images were obtained through the abdomen and pelvis after administration of intravenous contrast. Auto Exposure Controls were utilized during the CT exam to meet ALARA standards for radiation dose reduction. All CT scans use one or more of the following dose optimizing techniques: automated exposure control, MA and/or KvP adjustment based on patient size and exam type or iterative reconstruction. INDICATION: Epigastric pain. Comparison 01/28/2022 FINDINGS: Nonobstructing right renal calculi showed no appreciable change from prior. Some early accumulation of contrast media within the bilateral collecting systems limiting sensitivity for detecting nonobstructing intrarenal stones. No radiodense ureteral calculus. No hydroureteronephrosis. No perinephric or periureteric edema. The urinary bladder unremarkable. The lung bases were clear. Liver, spleen, adrenals, pancreas all negative. The gallbladder appeared normal. No radiodense stone. No ductal dilatation. The spleen normal in size. The aortoiliac and mesenteric vessels patent, nonaneurysmal and nonacute. No bowel obstruction. No pneumatosis. No free gas. No abscess, hematoma or acute fluid collection. No perigastric, perienteric or pericolonic edema. No focal inflammatory changes found. There is no appendicitis or diverticulitis. IMPRESSION: Nonobstructing nephrolithiases, no acute appearing abdominal pelvic abnormality. Dictated on workstation # [id number] Dict: 12/30/22622 Trans: 12/30/22708 CHRISTINE [phone] Interpreted by: WOLFGANG NAVARRO Electronically signed by: (ANA CHING MD) Departure Impression Primary Impression: Epigastric abdominal pain Disposition: HOME, SELF-CARE Condition: Stable Departure-Patient Inst. Decision time for Depature: 07:30 (ANA CHING MD) Referrals: NO,LOCAL PHYSICIAN (PCP/Family) Primary Care Physician Patient Instructions: Gastritis ED Add. Discharge Instructions: Medications were sent to your pharmacy from a previous visit to help with this. You can also take [id number] Maalox to help with this discomfort. Follow- up with your regular doctor if things are not improving, you may need referral to a GI specialist for evaluation for potential scope Work/School Note: Work Release Form Date Seen in the Emergency Department: Dec 30, 2022 Return to Work: Dec 31, 2022 Restrictions: No Restrictions KATTY IBARRA MD Dec 30, 2022 05:57 ANA CHING MD Dec 30, 2022 07:24
[2022-12-30 06:08] LABS: BASOPHILS % (AUTO) 0 % (0-10); EOSINOPHILS # (AUTO) 0.3 10^3/uL (0.0-0.3); EOSINOPHILS % (AUTO) 2 % (0-10); HEMATOCRIT 43 % (40-54); HEMOGLOBIN 14.8 g/dL (13.3-17.7); LYMPHOCYTES # (AUTO) 1.9 10^3/uL (1.0-4.0); LYMPHOCYTES % (AUTO) 14 % (12-44); MEAN CORPUSCULAR HEMOGLOBIN 30 pg (25-34); MEAN CORPUSCULAR HGB CONC 34 g/dL (32-36); MEAN CORPUSCULAR VOLUME 88 fL (80-99); MEAN PLATELET VOLUME 10.5 fL (9.0-12.2); MONOCYTES # (AUTO) 0.9 10^3/uL (0.0-1.0); MONOCYTES % (AUTO) 6 % (0-12); NEUTROPHILS # (AUTO) 10.8 10^3/uL (1.8-7.8); NEUTROPHILS % (AUTO) 78 % (42-75); PLATELET COUNT 191 10^3/uL (130-400); WHITE BLOOD COUNT 13.9 10^3/uL (4.3-11.0)
[2022-12-30] MEDS ORDERED: NS 100 ML (IVPB) BAG IV ONE (06:30)
[2022-12-30] MEDS ORDERED: IOHEXOL 350 MG/ML 100 ML (OMNIPAQUE 350) VIAL IV ONE (06:30)
[2022-12-30] MEDS ORDERED: HOLD METFORMIN - RECEIVED CONTRAST 20 ML VIAL IV SCH (06:30)
[2022-12-30 06:34] LABS: ALANINE AMINOTRANSFERASE 20 U/L (0-55); ALBUMIN 4.5 GM/DL (3.2-4.5); ALKALINE PHOSPHATASE 113 U/L (40-136); BILIRUBIN,TOTAL 0.2 MG/DL (0.1-1.0); BUN/CREATININE RATIO 19; CALCIUM 9.2 MG/DL (8.5-10.1); CARBON DIOXIDE 26 MMOL/L (21-32); CHLORIDE 102 MMOL/L (98-107); CREATININE SERUM 1.01 MG/DL (0.60-1.30); GFR ESTIMATED 107; GLUCOSE 124 MG/DL (70-105); LIPASE 22 U/L (8-78); POTASSIUM 3.8 MMOL/L (3.6-5.0); SODIUM 138 MMOL/L (135-145); TOTAL PROTEIN 7.2 GM/DL (6.4-8.2)
--- NOTE | 2022-12-30 07:09 | Diagnostic Imaging Report ---
PROCEDURE: CT abdomen and pelvis with contrast. TECHNIQUE: Multiple contiguous axial images were obtained through the abdomen and pelvis after administration of intravenous contrast. Auto Exposure Controls were utilized during the CT exam to meet ALARA standards for radiation dose reduction. All CT scans use one or more of the following dose optimizing techniques: automated exposure control, MA and/or KvP adjustment based on patient size and exam type or iterative reconstruction. INDICATION: Epigastric pain. Comparison 01/28/2022 FINDINGS: Nonobstructing right renal calculi showed no appreciable change from prior. Some early accumulation of contrast media within the bilateral collecting systems limiting sensitivity for detecting nonobstructing intrarenal stones. No radiodense ureteral calculus. No hydroureteronephrosis. No perinephric or periureteric edema. The urinary bladder unremarkable. The lung bases were clear. Liver, spleen, adrenals, pancreas all negative. The gallbladder appeared normal. No radiodense stone. No ductal dilatation. The spleen normal in size. The aortoiliac and mesenteric vessels patent, nonaneurysmal and nonacute. No bowel obstruction. No pneumatosis. No free gas. No abscess, hematoma or acute fluid collection. No perigastric, perienteric or pericolonic edema. No focal inflammatory changes found. There is no appendicitis or diverticulitis. IMPRESSION: Nonobstructing nephrolithiases, no acute appearing abdominal pelvic abnormality. Dictated by: Dictated on workstation # [id number]
== END 2022-12-30 07:26 | disposition home or self-care (01) ==
LOC: EDUNIT# 05:44 → ER FS 05:45
DX: R10.13 Epigastric pain (principal); D72.829 Elevated white blood cell count, unspecified; Z28.310 Unvaccinated for COVID-19
CPT/HCPCS: 36415; 74177; 80053; 80320; 83690; 85025; Q9967